=== PATIENT | female | born 1990 | race African-American/Black ===

== ENCOUNTER 2017-11-02 08:24 | Emergency (ER) | payer OTHER ==
[~2017-11-02] VITALS: Ht 144.8 cm; Wt 46.0 kg
[~2017-11-02 08:24] MED LIST: ACET-3161 GT; IBUP-779 PO
[2017-11-02 08:30] VITALS: BP 132/87
== END 2017-11-02 09:21 | disposition home or self-care (01) ==
LOC: ER 08:24
DX: G62.9 Polyneuropathy, unspecified (principal); Q05.9 Spina bifida, unspecified; J45.909 Unspecified asthma, uncomplicated
CPT/HCPCS: 99281

== ENCOUNTER 2023-06-23 19:41 | Emergency (ER) | payer MEDICAID, OTHER ==
[~2023-06-23] VITALS: Ht 167.6 cm; Wt 75.0 kg
[2023-06-23 19:51] VITALS: BP 153/90; PULSE 90; RESP 16; TEMP 97.9; O2SAT 99
[2023-06-23] MEDS: GLUCAGON,HUMAN RECOMBINANT 1MG/VIAL IM ONE (20:15)
== END 2023-06-23 22:50 | disposition home or self-care (01) ==
LOC: ER 19:52
DX: T18.108A Unspecified foreign body in esophagus causing other injury, initial encounter (principal); X58.XXXA Exposure to other specified factors, initial encounter; Y93.89 Activity, other specified; Y92.89 Other specified places as the place of occurrence of the external cause; Y99.8 Other external cause status; J45.909 Unspecified asthma, uncomplicated
CPT/HCPCS: 99283; 96372; J1610